=== PATIENT | female | born 1955 | race Caucasian/White ===

== ENCOUNTER 2020-09-27 17:00 | Emergency (ER) | payer BC, MEDICARE ==
[2020-09-27 17:13] VITALS: BP 121/88; PULSE 89; O2SAT 92
[2020-09-27] MEDS ORDERED: Norflex 60 MG/2 ML ONE (17:18)
[2020-09-27] MEDS ORDERED: TORAdol 30 mg Injection ONE (17:18)
[2020-09-27] MEDS: Norflex 60 MG/2 ML IM ONE (17:19)
--- NOTE | 2020-09-27 17:19 | ERPHSYRPT ---
- History of Present Illness Time Seen by Provider: 09/27/20 17:16 Source: patient Exam Limitations: no limitations Patient Subjective Stated Complaint: Neck/shoulder and upper back pain Triage Nursing Assessment: Patient brought back to ED via w/c and requested to stay in w/c. Patient A+O X3. Patient's skin pink, warm and dry. Patient complains of neck/pavithra shoulder and upper back pain constant aching 10/10. Patient states she woke up this am with the pain. Patient denies recent trauma or injuries to area. Patient states she has been sleeping in a recliner the past few months due to cellulitis in BLE. No visible bruising or injuries noted to neck, pavithra shoulders and upper back. Physician History: Neck/shoulder and upper back pain started 8 AM today Patient states she woke up this am with the pain. Patient denies recent trauma or injuries to area. Patient states she has been sleeping in a recliner the past few months due to cellulitis in BLE. No visible bruising or injuries noted Timing/Duration: today Severity: moderate Associated Symptoms: denies symptoms Allergies/Adverse Reactions: No Known Drug Allergies Allergy (Unverified 09/27/20 17:06) Hx Influenza Vaccination/Date Given: No Hx Pneumococcal Vaccination/Date Given: No Immunizations Up to Date: Yes Travel Risk - International Travel Have you traveled outside of the country in past 3 weeks: No - Coronavirus Screening Are you exhibiting any of the following symptoms?: No Close contact with a COVID-19 positive Pt in past 14-21 Days: No - Review of Systems Constitutional: No Symptoms Eyes: No Symptoms Ears, Nose, & Throat: No Symptoms Respiratory: No Symptoms Cardiac: No Symptoms Abdominal/Gastrointestinal: No Symptoms Genitourinary Symptoms: No Symptoms Musculoskeletal: Back Pain (left upper scapular area), Neck Pain - Past Medical History Neurological History: No Pertinent History ENT History: No Pertinent History Cardiac History: No Pertinent History Respiratory History: No Pertinent History Endocrine Medical History: No Pertinent History Musculoskeletal History: No Pertinent History GI Medical History: No Pertinent History History: No Pertinent History Psycho-Social History: No Pertinent History Female Reproductive Disorders: No Pertinent History - Past Surgical History Past Surgical History: No Neuro Surgical History: No Pertinent History Cardiac: No Pertinent History Respiratory: No Pertinent History Gastrointestinal: No Pertinent History Genitourinary: No Pertinent History Musculoskeletal: No Pertinent History Female Surgical History: No Pertinent History - Social History Smoking Status: Never smoker Exposure to second hand smoke: Yes Drug Use: none Patient Lives Alone: No - Female History Hx Now: No - Nursing Vital Signs Nursing Vital Signs: Initial Vital Signs Temperature 98.0 F 09/27/20 17:06 Pulse Rate 89 09/27/20 17:06 Respiratory Rate 18 09/27/20 17:06 Blood Pressure 121/88 09/27/20 17:06 O2 Sat by Pulse Oximetry 92 L 09/27/20 17:06 Pain Scale Pain Intensity 10 - Physical Exam General Appearance: no apparent distress Eye Exam: PERRL/EOMI Ears, Nose, Throat Exam: normal ENT inspection Neck Exam: normal inspection Respiratory Exam: normal breath sounds Cardiovascular Exam: regular rate/rhythm Gastrointestinal/Abdomen Exam: soft Back Exam: muscle spasm (upper neck and upper back left side) Extremity Exam: normal inspection Neurologic Exam: alert, oriented x 3, cooperative SpO2: 92 - Course Nursing assessment & vital signs reviewed: Yes Ordered Tests: Medication Summary Discontinued Medications Generic Name Dose Route Start Last Admin Trade Name Paulieq PRN Reason Stop Dose Admin Diphenhydramine HCl 50 mg 09/27/20 17:43 09/27/20 17:49 Benadryl 50 Mg/Ml IM 09/27/20 17:44 50 mg STAT ONE Administration Diphenhydramine HCl Confirm 09/27/20 17:46 Benadryl 50 Mg/Ml Administered 09/27/20 17:47 Dose 50 mg .ROUTE .STK-MED ONE Ketorolac Tromethamine 60 mg 09/27/20 17:15 09/27/20 17:20 Toradol 30 Mg Injection IM 09/27/20 17:16 60 mg STAT ONE Administration Ketorolac Tromethamine Confirm 09/27/20 17:18 Toradol 30 Mg Injection Administered 09/27/20 17:19 Dose 60 mg .ROUTE .STK-MED ONE Orphenadrine Citrate 60 mg 09/27/20 17:16 09/27/20 17:19 Norflex 60 Mg/2 Ml IM 09/27/20 17:17 60 mg STAT ONE Administration Orphenadrine Citrate Confirm 09/27/20 17:18 Norflex 60 Mg/2 Ml Administered 09/27/20 17:19 Dose 60 mg .ROUTE .STK-MED ONE - Progress Progress: improved, pain not gone completely Counseled pt/family regarding: diagnosis, need for follow-up - Departure Departure Disposition: Home Clinical Impression: Muscle spasms of neck Condition: Stable Critical Care Time: No Referrals: MAY HORTON MD [Primary Care Provider] - Instructions: Cervical Muscle Strain (DC), Muscle Spasms (DC) Additional Instructions: Discharge/Care Plan HUYEN LAGOS was seen on 09/27/20 in the Emergency Room. The patient was counseled regarding Diagnosis,Lab results, Imaging studies, need for follow up and when to return to the Emergency Room. Prescriptions given: Discharge Note I have spoken with the patient and/or caregivers. I have explained the patient's condition, diagnosis and treatment plan based on the information available to me at this time. I have answered the patient's and/or caregiver's questions and addressed any concerns. The patient and/or caregivers have as good understanding of the patient's diagnosis, condition and treatment plan as can be expected at this point. The vital signs have been stable. The patient's condition is stable and appropriate for discharge from the emergency department. The patient will pursue further outpatient evaluation with the primary care physician or other designated or consulting physician as outlined in the discharge instructions. The patient and/or caregivers are agreeable to this plan of care and follow-up instructions have been explained in detail. The patient and/or caregivers have received these instruction. The patient/and or caregivers are aware that any significant change in condition or worsening of symptoms shou ld prompt an immediate return to this or the closest emergency department or call 911. Apply Biofreeze or voltaren gel locally and apply ice packs. Follow up with your primary care physician in next 2-3 days if symptoms are not better Prescriptions: Cyclobenzaprine HCl 10 mg [Flexeril 10 MG] 10 mg PO TID #20 tablet
[2020-09-27] MEDS: TORAdol 30 mg Injection IM ONE (17:20)
[2020-09-27] MEDS ORDERED: BENADRYL 50 MG/ML ONE (17:46)
[2020-09-27] MEDS: BENADRYL 50 MG/ML IM ONE (17:49)
== END 2020-09-27 18:20 | disposition home or self-care (01) ==
LOC: ED 17:00
DX: M62.838 Other muscle spasm (principal); M54.2 Cervicalgia; M54.6 Pain in thoracic spine; M25.512 Pain in left shoulder; M25.511 Pain in right shoulder
CPT/HCPCS: 96372; 99284; J1200; J1885; J2360